=== PATIENT | female | born 1950 | race Caucasian/White ===

== ENCOUNTER 2017-10-24 01:35 | Emergency (ER) | payer MEDICARE, BC ==
[2017-10-24] MEDS ORDERED: SODIUM CHLORIDE 0.9% 1000ML 1,000 ML IV ONE (01:43)
[2017-10-24] MEDS ORDERED: ACETAMINOPHEN 325 MG PO ONE (01:43)
[2017-10-24 01:53] LABS: BASOPHILS % (AUTO) 1 % (0-3); EOSINOPHILS % (AUTO) 0 % (0-9); HEMATOCRIT 38 % (35-47); MEAN CORPUSCULAR HGB CONC 35.7 gm/dl (32.0-36.0); MEAN CORPUSCULAR VOLUME 86 fL (81-99); MONOCYTES % (AUTO) 7.7 % (0-12); NEUTROPHILS % (AUTO) 85.1 % (37-80)
[2017-10-24] MEDS ORDERED: ACETAMINOPHEN 325 MG ONE (01:56)
[2017-10-24 02:09] LABS: ALBUMIN 3.8 gm/dl (3.4-5.0); CALCIUM 8.3 mg/dl (8.5-10.1); POTASSIUM 3.6 mMol/L (3.5-5.1)
[2017-10-24 02:49] VITALS: RESP 20
[2017-10-24] MEDS ORDERED: AZITHROMYCIN 250 MG TAB PO ONE (03:03)
[2017-10-24] MEDS ORDERED: OSELTAMIVIR PHOSPHATE 75 MG CAP PO ONE ×2 (03:03→03:19)
[2017-10-24] MEDS ORDERED: AZITHROMYCIN 250 MG TAB ONE (03:21)
[2017-10-24 03:57] VITALS: BP 110/73; PULSE 102; TEMP 98.9; O2SAT 93
== END 2017-10-24 03:45 | disposition home or self-care (01) | DRG 153 ==
LOC: ED 01:35
DX: J11.1 Influenza due to unidentified influenza virus with other respiratory manifestations (principal); J20.9 Acute bronchitis, unspecified
CPT/HCPCS: 36415; 71046; 80053; 85025; 87040; 87430; 87804; 96365; 99284; A9270-GY